=== PATIENT | male | born 1955 | race Caucasian/White ===

== ENCOUNTER 2018-07-17 00:07 | Day surgery (SDC) | payer OTHER ==
[~2018-07-17] VITALS: Ht 172.7 cm; Wt 78.0 kg
[~2018-07-17 00:07] MED LIST: ASC500 PO; CEP500 PO; FISH OIL1 CAP PO; HYDR-2954 PO; PENI-22 PO; VAL500 PO; VITA1CAP46 PO
[2018-07-17] MEDS ORDERED: LIDOCAINE MPF 1% 5 ML VIAL ONE (06:51)
[2018-07-17] MEDS ORDERED: PROPOFOL EMUL(*) 10MG/ML 20 ML 40 ML ONE (06:51)
[2018-07-17 07:42] VITALS: BP 143/82
[2018-07-17] MEDS ORDERED: NORMOSOL R SOLN(*) 1000 ML BAG 1,000 ML IV PRN (07:55)
[2018-07-17] MEDS ORDERED: LIDOCAINE/SOD BICARB 8.4% SYR ID ONE (07:55)
[2018-07-17 09:12] VITALS: BP 101/71
[2018-07-17 09:15] VITALS: BP 99/72
[2018-07-17 09:46] VITALS: BP 145/76
[2018-07-17 09:49] VITALS: BP 127/86
== END 2018-07-17 10:07 | disposition home or self-care (01) ==
LOC: OR 00:07
PROVIDERS: ATTEND Family Medicine
DX: Z12.11 Encounter for screening for malignant neoplasm of colon (principal); D12.5 Benign neoplasm of sigmoid colon; K62.1 Rectal polyp
CPT/HCPCS: 00811; 45385; 88305; J2001; J2704